=== PATIENT | male | born 1965 | race Caucasian/White ===

== ENCOUNTER 2021-05-24 10:45 | Outpatient (CLI) | payer BC, SELFPAY ==
--- NOTE | 2021-05-24 10:52 | EKG12_ITS ---
Test Reason : PRE OP Blood Pressure : / mmHG Vent. Rate : 106 BPM Atrial Rate : 106 BPM P-R Int : 118 ms QRS Dur : 078 ms QT Int : 306 ms P-R-T Axes : 056 056 051 degrees QTc Int : 406 ms Sinus tachycardia Otherwise normal ECG Confirmed by JOSEF SAMSON, AYLA ([id number]), editor managing director JOAQUÍN WILLIS ([id number]) on 05/24/2021 2:21:21 PM Referred By: Obed Travis Confirmed By:AYLA BAHENA MD
--- NOTE | 2021-05-24 11:04 | RAD_ITS ---
STUDY: X-RAY CHEST REASON FOR EXAM: Male, 55 years old. PRE OP TECHNIQUE: PA and lateral views of the chest. COMPARISON: None. FINDINGS: The lungs are clear and expanded. There is no demonstrated pleural abnormality. Normal size heart. Normal mediastinum and debora. Normal visualized pulmonary arteries. Normal visualized aortic arch and descending thoracic aorta. Normal visualized thoracic spine. Normal visualized ribs, clavicles, and shoulders. There is no demonstrated abnormality of the visualized soft tissue structures of the upper abdomen. RAD/Chest PA and Lateral IMPRESSION: Normal x-ray examination of the chest. Electronically Signed: Maddie Short MD at 23:55 EST Reading Location ID and State: [id number] / Tel , Service support ,
[2021-05-24 12:40] LABS: Absolute Lymphocyte Count 0.78 X10^3/uL (0.83-4.51); Absolute Neutrophil Count 3.3 X10^3/uL (2.0-7.7); Basophil# 0.03 X10^3/uL; Basophil% 0.6 % (0-1); Eosinophil# 0.03 X10^3/uL; Eosinophils% 0.6 % (0-5); Hematocrit 40.4 % (40-54); Hemoglobin 13.5 g/dL (13.0-16.5); Lymphocyte # 0.78 X10^3/ul (0.83-4.51); Lymphocyte % 16.6 % (19-41); Mean Corp Hgb Conc 33.4 g/dL (32-36); Mean Corpuscular Hgb 32.5 pg (27.0-32.0); Mean Corpuscular Volume 97.3 fL (80-94); Mean Platelet Vol. 10.9 fl (6.2-12.0); Monocyte# 0.56 X10^3/uL; Monocyte% 11.9 % (0-10); NRBC Flagged by Analyzer 0 % (0-5); Neutrophil # 3.28 X10^3/uL (2.7-7.7); Neutrophil % 69.7 % (47-70); Platelet Count 160 K/mm3 (150-450); RBC Distribution Width CV 12.5 % (11.6-14.6); RBC Distribution Width SD 44.8 fl (35.1-43.9); Red Blood Count 4.15 M/mm3 (4.6-6.2); White Blood Count 4.7 K/mm3 (4.4-11.0)
[2021-05-24 13:25] LABS: Anion Gap 5 (5-15); BUN 7 mg/dL (7-18); BUN/Creat Ratio 9.6 RATIO (10-20); Chloride 104 mmol/L (98-107); Creatinine, Serum 0.73 mg/dL (0.70-1.30); EST Glomerular Filtration Rate 118 mL/min (>60); Est Glom Filt Rate - Afr Amer 142 mL/min (>60); Glucose 97 mg/dL (74-106); Sodium Level 137 mmol/L (136-145)
== END 2021-05-24 23:59 | disposition home or self-care (01) ==
PROVIDERS: Referring Provider Physician Assistant; Visit Provider Physician Assistant
DX: Z01.818 Encounter for other preprocedural examination (principal); Z01.810 Encounter for preprocedural cardiovascular examination; Z20.822 Contact with and (suspected) exposure to COVID-19
CPT/HCPCS: 36415; 71046; 80048; 85025; 87426; 93005; C9803

== ENCOUNTER → 2022-01-19 | Outpatient (CLI) | payer BC, SELFPAY ==
--- NOTE | 2022-01-19 17:46 | CT_ITS ---
EXAM: CT RIGHT LOWER EXTREMITY WITHOUT INTRAVENOUS CONTRAST CLINICAL INDICATION: RT KNEE DENIS TECHNIQUE: Helically acquired images were obtained of the right lower extremity without intravenous contrast. 2-D reformats were performed by the technologist. CTDIvol = ( 19.82 ) mGy, DLP = ( 1125.70 ) mGycm This CT exam was performed using one or more of the following dose reduction techniques: automated exposure control, adjustment of the mA and/or kV according to patient size, and/or use of iterative reconstruction technique. This report was created using [employer] report [employer] technology. COMPARISON: None. FINDINGS: BONES/JOINTS: Moderate tricompartmental osteoarthrosis, worse at the medial femorotibial compartment. Large suprapatellar joint effusion. No acute or healing fracture. Lateral subluxation of the tibia relative to the femur which may be chronic. Mild calcaneal enthesopathy. Nonfused os trigonum. Small osseous fragments at the medial malleolus from a previous injury. No significant tibiotalar or subtalar joint effusion. Chondrocalcinosis about the medial and lateral femorotibial compartments. No sclerotic or destructive changes. SOFT TISSUES: Unremarkable. No soft tissue swelling or gas. No radiopaque foreign body. VASCULATURE: Peripheral vascular calcifications. OTHER FINDINGS: No other masses or fluid collections. CT/Extremity Lower without Contra IMPRESSION: Moderate tricompartmental osteoarthrosis, worse at the medial femorotibial compartment. Large suprapatellar joint effusion. Electronically Signed: Jayce Meng MD at 4:24 EDT ,
== END | disposition home or self-care (01) ==
LOC: CT 17:41
PROVIDERS: PCP Family Medicine; Visit Provider Physician Assistant
DX: M17.11 Unilateral primary osteoarthritis, right knee (principal)
CPT/HCPCS: 73700

== ENCOUNTER 2022-02-07 10:41 | Day surgery (SDC) | payer BC, SELFPAY ==
--- NOTE | 2022-01-20 16:17 | EKG12_ITS ---
Test Reason : PREOP Blood Pressure : / mmHG Vent. Rate : 075 BPM Atrial Rate : 075 BPM P-R Int : 114 ms QRS Dur : 082 ms QT Int : 356 ms P-R-T Axes : 058 062 061 degrees QTc Int : 397 ms Normal sinus rhythm Normal ECG Confirmed by JOSEF SAMSON, AYLA ([id number]), editor greeting card JOAQUÍN WILLIS ([id number]) on 01/22/2022 7:13:00 AM Referred By: Matthew Mcpherson Confirmed By:AYLA BAHENA MD
[2022-01-20 17:04] LABS: Absolute Neutrophil Count 2.6 X10^3/uL (2.0-7.7); Basophil# 0.03 X10^3/uL; Basophil% 0.6 % (0-1); Eosinophil# 0.05 X10^3/uL; Eosinophils% 1.1 % (0-5); Hematocrit 37.3 % (40-54); Hemoglobin 12.9 g/dL (13.0-16.5); Lymphocyte % 25.7 % (19-41); Mean Corp Hgb Conc 34.6 g/dL (32-36); Mean Corpuscular Hgb 34.5 pg (27.0-32.0); Mean Corpuscular Volume 99.7 fL (80-94); Mean Platelet Vol. 10.5 fl (6.2-12.0); Monocyte# 0.76 X10^3/uL; Monocyte% 16.3 % (0-10); NRBC Flagged by Analyzer 0 % (0-5); Neutrophil # 2.61 X10^3/uL (2.7-7.7); Neutrophil % 55.9 % (47-70); Platelet Count 140 K/mm3 (150-450); RBC Distribution Width CV 12.3 % (11.6-14.6); RBC Distribution Width SD 44.7 fl (35.1-43.9); Red Blood Count 3.74 M/mm3 (4.6-6.2); White Blood Count 4.7 K/mm3 (4.4-11.0)
[2022-01-20 17:44] LABS: Albumin, Serum 3.7 g/dL (3.2-5.0); Anion Gap 3 (5-15); BUN 12 mg/dL (7-18); Calcium,Total 9.1 mg/dL (8.5-10.1); Chloride 107 mmol/L (98-107); EST Glomerular Filtration Rate 82 mL/min (>60); Est Glom Filt Rate - Afr Amer 99 mL/min (>60); Glucose 84 mg/dL (74-106); Potassium 4.2 mmol/L (3.5-5.1); Sodium Level 137 mmol/L (136-145)
[2022-01-20 19:24] LABS: Hemoglobin A1c < 3.7 % (3.8-5.6)
--- NOTE | 2022-02-01 14:38 | CASEMGMT ---
TC to pt for RN CM assessment prior to surgery. No answer and received an unidentified voicemail.
[2022-02-07] VITALS (9 sets, daily range): BP systolic 102–153; BP diastolic 46–92; PULSE 81–110; RESP 13–18; TEMP 37.1–37.2; O2SAT 99–100; BMI 22.1
[2022-02-07] MEDS: Acetaminophen 500 MG Tablet 1000 MG PO (11:09)
[2022-02-07] MEDS: Magnesium 1 GM over 15 mins IV (11:09)
[2022-02-07] MEDS: Gabapentin 600 MG Tablet PO (11:09)
[2022-02-07] MEDS: Lactated Ringers 1,000 ML 15 ML IV (11:10)
--- NOTE | 2022-02-07 11:28 | RAD_ITS ---
HISTORY post-op TKR -- in PACU. TECHNIQUE: XR Knee 1 or 2 Views. COMPARISON: CT 02-08. FINDINGS: BONES : No acute fracture identified. No abnormal periprosthetic lucency seen. JOINTS: Right knee in place without dislocation. SOFT TISSUES: Postoperative air and edema with overlying skin delmy noted. RAD/Knee 1 or 2 Views IMPRESSION: Satisfactory postoperative alignment of left knee arthroplasty. Electronically Signed: Teagan Dinh MD at 15:53 EST ,
[2022-02-07 11:35] LABS: Bedside Glucose 70 mg/dL (74-106)
[2022-02-07] MEDS: Cefazolin 2 GM in 0.9% Normal Saline 100 ML IV (12:12)
[2022-02-07] MEDS: TXA 1000mg in NS100 100ml (IVPB at Incision) 660 MG IV (12:22)
--- NOTE | 2022-02-07 13:30 | KNEE_PTH ---
PATIENT: CARMEN ORTIZ LOC: [facility] U#:[id number] AGE/SX: 56/M ROOM: RE02/07/[address]: Dr. Matthew Mcpherson DO : 1965 BED: DIS: 02/07/2022 SPEC #: [id number] RECD: 02/07/22 14:38 STATUS: SUZANNE REQ #: [id number] JUAN: 02/07/22 13:[address]: Matthew Mcpherson DEPT: SURGICAL PATHOLOGY RECD BY: Marylin Villasenor ENTERED: 02/08/22 09:37 SP TYPE: TOTAL KNEE OTHR DR: Dr. Juan Wilson DO Tissues: Knee, NOS Procedures: Decalcification bone/plaque Surgery Specimen Level IV HEADER OPERATION: ERAS, total knee replacement robotic arm assist PRE-OP DIAGNOSIS: Osteoarthritis right knee TISSUE SUBMITTED: Right knee bone MICROSCOPIC DIAGNOSIS Right knee bone, total knee replacement/resection: Pieces of bone with degenerative osteoarthritic changes. SJ:griselda 02/11/2022 MICROSCOPIC DESCRIPTION Slides are reviewed. GROSS DESCRIPTION Received is one container designated right knee bone. The specimen consists of multiple fragments of wilcox-yellow bone measuring in aggregate 11 x 10 x 4 cm. No soft tissue is identified. A number of bony fragments contain articular surfaces consistent with tibial plateau and femoral condyle and displaying prominent osteophyte formation, eburnation, and bone erosion. Test Engine Operator sections are submitted in one cassette after decalcification. / OSCAR:griselda 02/08/2022 TC:5 CPT: 76252, 90592
[2022-02-07] MEDS: TXA 1000mg in NS100 100ml (IVPB at Closure) 660 MG IV (13:35)
--- NOTE | 2022-02-07 13:40 | PCM.OPRPT ---
Report of Operation Date of Procedure: 02/07/22 Pre-Operative Diagnosis: OA right knee Post-Operative Diagnosis: same Surgery/Procedure Performed:: Right TKR Description of Surgical Findings:: Report of Operation Date of Procedure: 02/07/2022 Preoperative Diagnosis: [right ] knee primary osteoarthritis Postoperative Diagnosis: [right ] knee primary osteoarthritis Operation: Robotic Assisted Knee Total Arthroplasty, [right ] knee Surgeon: Dr Matthew Mcpherson DO Instrument Operator: Obed Travis PA-C Anesthesia: spinal Anesthesiologist: Scot Donald M.D. Findings: Stable knee with good patella tracking Specimen(s): Bony cuts Complications: No intraoperative complications Estimated Blood Loss: 30 cc IV Fluids: 1000 cc crystalloid Implants Used: 1. Angelika Triathlon press-fit CR size 5 femur 2. Angelika Triathlon size 6 tibia 3. 38 mm patella 4. 11 mm CS polyethylene Brief History Operative Indications: [ (56 y/o male) ] with history of [right ] knee osteoarthrosis with radiographic findings with loss of joint space, osteophyte formation and subchondral sclerosis. Failed conservative measures as mentioned in the H&P. Discussion of total knee arthroplasty as well as risk and benefits were discussed with the patient including but not limited to blood loss, DVTs, PEs, neurovascular damage, general risk of anesthesia including loss of life, and stiffness or instability were also discussed with the patient. Patient demonstrated understanding and was able to sign informed consent. Procedure: On the date of procedure, patient's [right ] lower extremity was marked in the preoperative area. The patient was then taken back to the operating room where that patient was placed on the table in the supine position. All bony prominences were identified and well-padded. Anesthesia assumed control of the C-spine and airway throughout the remainder of the procedure. A tourniquet was placed on the [right ] upper thigh and the leg was prepped in a sterile fashion. The surgeon then scrubbed at this time. Upon reentering the room, the [right ] lower extremity was draped in a standard orthopedic fashion. A timeout was then called and everyone agreed upon the side, the site, the procedure to be performed, patient's identity and antibiotics given. Esmarch bandage was used to exsanguinate the extremity and the tourniquet was placed up to 250 mmHg with the knee in flexion. A midline skin incision was made and a sharp dissection was taken down through skin, subcutaneous tissue and fat. The standard medial parapatellar incision was made and the patella was subluxed laterally. An appropriate deep MCL release was done and the fat pad was resected. Our attention was then directed to the patella. The patella was everted and a flat resection was made. The knee was then flexed up and 2 femoral pins were placed inside the incision and 2 tibial pins were placed outside the incision in the medial tibia bicortically. Once this was completed, the 2 checkpoints in the femur and tibia were placed. Knee was then flexed up and the bony landmarks were registered. Once the was completed, the knee taken through range of motion and manually stressed allowing us to plan for an appropriate tibial cut. The robotic arm was brought into the field sterilely and checkpoint and saw were registered. Based on the patient's deformity, the tibial cut was made in [1 degree varus ]. At this time, the tensioner was then placed in the joint and ligament tension was checked at 90 degrees and full extension. Based on the patient's ligamentous tension, appropriate adjustments were made to the operative plan and ligament releases were done. Once we were happy with our operative plan with balanced flexion and extension gaps, our attention was directed to the femur. The robot was brought into the field sterilely and registered. Posterior condylar cuts, anterior chamfer cuts and anterior cuts were appropriately made for a [size 5 ] femur. When these were completed, the saws were switched out in the distal femoral and posterior chamfer cuts were made. Protecting the soft tissue throughout this time. A [size 6 ] base plate was selected. The knee was flexed to 90 degrees and soft tissues and posterior osteophytes were removed from the joint. 40 cc of the periarticular injection was injected into the posterior medial corner of the joint. The appropriate trials were then placed on the femur and tibia. A trial polyethylene was trialed to ensure proper balancing and stability of the knee. The appropriate tibial internal rotation was then marked with a bovie. Our attention was then directed to the patella. The lug holes were drilled and the patella trial was placed. Patellar tracking was checked and deemed appropriate. Once we were happy, lug holes were drilled for the femur and trial components were removed. The tibia was subluxed and pinned into place and the keel was punched and drilled appropriately. Final components were verified and opened. The wound was copiously irrigated with normal saline. The components were impacted into place with the tibia, femur and finally the patella. The trial poly component was placed and the knee was placed in full extension. The tracking, alignment and balance were verified and a [11 mm CS ] polyethylene component was placed. Once the final components were placed an Irrisept lavage was performed and the wound was copiously irrigated with normal saline solution and the periarticular injection was given. the wound was closed in a layer-zuniga fashion using #1 vicryl interrupted sutures for the arthrotomy, 2-0 interrupted vicryl suture for the subcuticular layer and delmy for final skin closure. A sterile compressive dressing was then placed. The patient was then awakened from anesthesia, transferred to the rstella and transferred to the PACU for recovery. My physician nursing home assistant administrator was a vital part of this case. He was important in appropriate retraction during the case, and protection of soft tissues during bony cuts. His intimate knowledge of the case and my steps aided in safe and expedient completion of the procedure as well as appropriate position of the leg during the case. He was also vital in assisting with closure under my direct supervision. Due to the complexity of this case, robotic arm was used to assist in the surgery to improve accuracy and clinical outcomes. Post-op Plan: DVT ppx; ASA 81 mg BID, thigh high compression stockings Follow up: in office in 2 weeks for wound check PT: to start POD #0 at hospital, outpatient PT should be arranged. Preoperative antibiotic: Ancef 2 grams IV Matthew Mcpherson DO Surgeon: Matthew Mcpherson software manager: Obed Travis Type of Anesthesia: Spinal Anesthesiologist: Scot Donald Estimated Blood Loss (mL): 30 cc Fluids Replaced: 1000 cc crystalloid Admit VTE Documentation VTE Present on Admission: No VTE Mechan Device Prophylaxis: SCD's and Thigh High VERENICE Hose VTE Pharm Prophylaxis ordered?: Yes
[2022-02-07] MEDS: Lactated Ringers 1,000 ML 999 ML IV (14:15)
[2022-02-07] MEDS: Lactated Ringers 1,000 ML 125 ML IV (15:42)
[2022-02-07] MEDS: oxyCODONE 5 MG Tablet PO (16:42)
== END 2022-02-07 17:20 | disposition home or self-care (01) ==
LOC: SDC 10:43 → AC 10:43
PROVIDERS: Anesthesiology; PCP Family Medicine; Referring Provider Orthopaedic Surgery; Visit Provider Orthopaedic Surgery
PROC: 0SRC0JZ Replacement of Right Knee Joint with Synthetic Substitute, Open Approach (ICD-10-PCS; CPT 27447; principal; 2022-02-07 13:00)
DX: M17.11 Unilateral primary osteoarthritis, right knee (principal); F17.210 Nicotine dependence, cigarettes, uncomplicated; G25.81 Restless legs syndrome; Z79.899 Other long term (current) drug therapy
CPT/HCPCS: 27447; 01402; 64450; 36415; 73560; 80048; 82040; 82962; 83036; 83735; 85025; 87081; 88305; 88311; 93005; 97162; C1776; J7120; J2405; J3475